=== PATIENT | female | born 1995 | race Caucasian/White ===

== ENCOUNTER 2025-05-15 08:22 | Emergency (ER) | payer OTHER ==
[~2025-05-15] VITALS: Ht 157.5 cm; Wt 118.1 kg
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
--- NOTE | 2025-05-15 09:24 | DVH ---
CT MAXILLOFACIAL WITHOUT INDICATION: Fall from horse EXAM DATE: 05/15/2025 08:46 AM COMPARISON: None RADIATION DOSE: CTDIvol: 66.83 mGy, DLP: 1377.62 mGy*cm PROCEDURE: Using the CT scanner, contiguous noncontrast scans were obtained from above the orbital ri ms to below the mandible. Coronal and sagittal reformatted images were then generated. All CT scans at this medical facility are performed using dose modulation techniques as appropriate t o a performed exam including the following: Automated exposure control was utilized; adjustment of th e MA and/or KV according to patient size; and use of iterative reconstruction technique. FINDINGS: The facial bones, including the orbits and paranasal sinuses are intact without evidence of fracture. The paranasal sinuses, mastoid air cells and middle ear cavities are normally aerated. The orbital contents are normal. Right temporal scalp contusion. IMPRESSION: Right temporal scalp contusion. No acute fracture CT findings of the maxillofacial region.
--- NOTE | 2025-05-15 09:40 | DVH ---
INDICATION: Fall from horse. pain TECHNIQUE: 4 radiographic views of the left wrist were obtained. COMPARISON: None FINDINGS/IMPRESSION: Nondisplaced scaphoid fracture. There are avulsion fragments on the palmar aspe ct of the wrist, which represents a triquetral fracture.
[2025-05-15] MEDS ORDERED: CYCL-837 PO (10:09)
[2025-05-15] MEDS ORDERED: IBUP-1454 PO (10:09)
[2025-05-15] MEDS: KETOROLAC TROMETH 30 MG/ML 1ML VIAL IM ONE (10:18)
[2025-05-15 11:06] VITALS: BP 140/69; PULSE 68; RESP 16; TEMP 98; O2SAT 98
== END 2025-05-15 11:08 | disposition home or self-care (01) ==
LOC: ER 08:22
DX: S62.102A Fracture of unspecified carpal bone, left wrist, initial encounter for closed fracture (principal); S00.03XA Contusion of scalp, initial encounter; S00.81XA Abrasion of other part of head, initial encounter; Z88.0 Allergy status to penicillin; V80.010A Animal-rider injured by fall from or being thrown from horse in noncollision accident, initial encounter; Y93.52 Activity, horseback riding; Y92.89 Other specified places as the place of occurrence of the external cause; Y99.8 Other external cause status
CPT/HCPCS: 70486; 73110; 96372; 99285; J1885